=== PATIENT | female | born 1985 | race Caucasian/White ===

== ENCOUNTER 2022-01-07 23:51 | Emergency (ER) | payer BC, SELFPAY ==
[2022-01-07 23:58] VITALS: BP 133/111; PULSE 116; RESP 18; TEMP 36; O2SAT 96
[2022-01-08 00:15] VITALS: BP 133/111; PULSE 116; RESP 18; O2SAT 98
--- NOTE | 2022-01-08 00:39 | CRLHL7_ITS ---
For Patients: As a result of the Century Cures Act, medical imaging exams and procedure reports are released immediately into your electronic medical record. You may view this report before your referring provider. If you have questions, please contact your health care provider. INDICATION: Frequent falls, dizziness TECHNIQUE: CT head without contrast. COMPARISON: None FINDINGS: CSF spaces: Within normal limits for age. Brain parenchyma: The armas-white differentiation is normal. No sign of mass, hemorrhage, or midline shift. Skull base and calvarium: The visualized paranasal sinuses and mastoid air cells demonstrate no acute or significant findings. The visualized orbits are grossly unremarkable. No skull fractures. IMPRESSION: Unremarkable noncontrast head CT. Please note that all CT scans at this facility use dose modulation, iterative reconstruction, and/or weight-based dosing when appropriate to reduce radiation dose to as low as reasonably achievable. Dictated by Harriet Brown MD @ 01/08/2022 1:10:47 AM (Electronically Signed)
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
[2022-01-08 00:50] LABS: Appearance Urine Slightly Cloudy (Clear); Bilirubin Urine Negative (Negative); Blood Urine Trace-intact (Negative); Color Urine Yellow (Yellow); Glucose Urine Negative (Negative); Ketones Urine Negative (Negative); Leukocyte Esterase Urine Negative (Negative); Nitrite Urine Negative (Negative); Protein Urine Negative (Negative); Specific Gravity Urine 1.015 (1.000-1.030); Urobilinogen Urine 0.2 (0.2-1.0)
[2022-01-08] MEDS: 0.9 % SODIUM CHLORIDE 1000 ml 1,000 ML IV (00:55)
[2022-01-08 00:56] LABS: Bacteria Urine Moderate; RBC Urine 0-2 (0-2); Squamous Epithelial Cell Urine Moderate (None-Few); WBC Urine 0-2 (0-5)
[2022-01-08 00:57] LABS: Barbiturate Screen Urine Negative (Negative); Cannabinoid Screen Urine Negative (Negative); Cocaine Screen Urine Negative (Negative); Methadone Screen Urine Negative (Negative); Methamphetamines Screen Urine Negative (Negative); Opiate Screen Urine Negative (Negative); Oxycodone Screen Urine Negative (Negative); Phencyclidine Screen Urine Negative (Negative); Tricyclic Antidepressant Urine Negative (Negative)
[2022-01-08 01:08] LABS: Basophils Absolute Auto 0.04 K/uL (0.00-0.30); Basophils Percent Auto 0.7 % (0.0-3.0); Eosinophils Absolute Auto 0.01 K/uL (0.00-0.50); Eosinophils Percent Auto 0.2 % (0.0-7.0); Hematocrit 42.9 % (33.0-51.0); Hemoglobin* 14.4 gm/dL (12.0-16.0); Immature Granulocytes Abs Auto 0.02 K/uL (0.00-0.30); Lymphocytes Absolute Auto 2.23 K/uL (0.90-2.90); Lymphocytes Percent Auto 38.6 % (20-44); Mean Corpuscular HGB Conc 34 gm/dL (32-36); Mean Corpuscular Hemoglobin 33 pg (26-34); Mean Corpuscular Volume 99 fL (80-100); Monocytes Percent Auto 7.3 % (0.0-11.0); Neutrophils Absolute Auto 3.06 K/uL (1.7-7.0); Neutrophils Percent Auto 52.9 % (42.0-72.0); Platelet Count* 240 K/uL (140-440); RDW Coefficient of Variation % 12.1 % (11.5-15.5); Red Blood Count 4.32 m/uL (4.00-5.20); White Blood Count* 5.78 K/uL (4.50-11.00)
--- NOTE | 2022-01-08 01:09 | ED.NURSE ---
call from lab urine pos amph and benzos, care rn and md notified
[2022-01-08 01:29] LABS: Slide Review Reflex No
[2022-01-08 01:32] LABS: Chloride* 102 mmol/L (96-114)
[2022-01-08 01:33] LABS: Albumin* 4.9 g/dL (3.3-5.0); Potassium* 3.8 mmol/L (3.6-5.1); Sodium* 142 mmol/L (135-149)
[2022-01-08 01:35] LABS: Ethanol* 0.25 % (0.01-0.03); Lipase* 171 U/L (23-300)
[2022-01-08 01:36] LABS: Alkaline Phosphatase* 72 U/L (40-150); Amylase* 76 U/L (18-89); Aspartate Amino Transferase* 155 U/L (12-35); Bilirubin Total* 0.5 mg/dL (0.1-1.5); Blood Urea Nitrogen* 8 mg/dL (5-24); Carbon Dioxide* 29 mmol/L (20-32); Creatinine* 0.6 mg/dL (0.5-1.5); Estimated Glomerular Filt Rate 121 ml/min; Total Protein* 8.6 g/dL (6.0-8.3)
[2022-01-08 01:37] LABS: Alanine Aminotransferase* 51 U/L (4-35); Calcium* 8.8 mg/dL (8.4-10.6); Glucose* 109 mg/dL (60-115)
[2022-01-08 01:44] LABS: PCR FLU A Negative PCR FLU A (Negative); PCR FLU B Negative PCR FLU B (Negative)
[2022-01-08 01:45] LABS: C Reactive Protein* < 0.5 mg/dL (0.5-1.0)
[2022-01-08 01:46] LABS: SARS PCR* Negative SARS-CoV-2 (Negative)
[2022-01-08 01:48] VITALS: PULSE 88; RESP 18; O2SAT 98
[2022-01-08 01:53] LABS: Amphetamine Screen Urine POSITIVE (Negative); Benzodiazepines Screen Urine POSITIVE (Negative)
[2022-01-08 01:55] LABS: INR 0.91 (0.91-1.10); Prothrombin Time 12.7 Seconds
[2022-01-08 02:04] LABS: TSH With Reflex to FT4* 0.901 uIU/mL (0.270-4.200)
[2022-01-08] MEDS: THIAMINE 100 MG TABLET PO (02:07)
[2022-01-08] MEDS: MULTIVITAMIN/MINERALS 1 TABLET 1 TAB PO (02:12)
[2022-01-08] MEDS: FOLIC ACID 1 MG TABLET PO (02:13)
--- NOTE | 2022-01-08 02:38 | ED.NURSE ---
pt isaac called for ride. pt waiting in lobby until he arrives.
[2022-01-08 02:39] VITALS: BP 132/80; PULSE 90; RESP 16; O2SAT 98
== END 2022-01-08 02:40 | disposition home or self-care (01) ==
PROVIDERS: Emergency Provider Family Medicine
DX: R41.82 Altered mental status, unspecified (principal); F10.129 Alcohol abuse with intoxication, unspecified; R74.01 Elevation of levels of liver transaminase levels; R23.3 Spontaneous ecchymoses
CPT/HCPCS: 36415; 70450; 80053; 80306; 81001; 82077; 82150; 83690; 83735; 84443; 84484; 85025; 85610; 86140; 87086; 87502; 87635; 93005; 99284; A9153; A9270; J7030

== ENCOUNTER 2022-09-01 22:58 | Emergency (ER) | payer BC, SELFPAY ==
[2022-09-01 23:06] VITALS: BP 149/116; PULSE 112; RESP 18; TEMP 36.1; O2SAT 97
--- NOTE | 2022-09-01 23:25 | CRLHL7_ITS ---
For Patients: As a result of the Century Cures Act, medical imaging exams and procedure reports are released immediately into your electronic medical record. You may view this report before your referring provider. If you have questions, please contact your health care provider. Indication: Fifth metatarsal base, navicular pain after fall. Technique: Left foot 2 views. Comparison: None. Findings: Bones: No acute fracture or aggressive osseous lesion. Alignment is normal. Joint spaces: Unremarkable. Soft tissues: Unremarkable. Impression: No evidence of an acute bony abnormality. Dictated by Jaime Angel MD @ 09/01/2022 11:58:43 PM (Electronically Signed)
--- NOTE | 2022-09-01 23:25 | CRLHL7_ITS ---
For Patients: As a result of the Century Cures Act, medical imaging exams and procedure reports are released immediately into your electronic medical record. You may view this report before your referring provider. If you have questions, please contact your health care provider. Indication: Marked pain behind left greater trochanter, fall. Technique: One AP pelvis view and two views left hip. Comparison: None. Findings: Bones: No acute fracture or aggressive osseous lesion. Alignment is normal. Joint spaces: Unremarkable. Soft tissues: IUD projects over the pelvis. Impression: No evidence of an acute bony abnormality. Dictated by Jaime Angel MD @ 09/02/2022 12:00:07 AM (Electronically Signed)
--- NOTE | 2022-09-02 00:05 | CRLHL7_ITS ---
For Patients: As a result of the Century Cures Act, medical imaging exams and procedure reports are released immediately into your electronic medical record. You may view this report before your referring provider. If you have questions, please contact your health care provider. INDICATION: Headache, vomiting after fall, alcohol intoxication TECHNIQUE: CT Head without i.v. contrast. Coronal and sagittal reformats were obtained. COMPARISON: None FINDINGS: CSF space: The ventricles are normal for age. Brain: No evidence of mass, acute infarction or hemorrhage is seen. No mass-effect or midline shift is seen. The brain parenchyma is otherwise normal in appearance with preservation of the armas-white matter junction. Calvarium: The visualized paranasal sinuses are well aerated. The mastoid air cells are clear. The visualized orbits are grossly unremarkable. The calvarium is unremarkable in appearance with no fractures identified. IMPRESSION: 1. No evidence of acute infarction, intracranial hemorrhage, or mass-effect seen. Please note that all CT scans at this facility use dose modulation, iterative reconstruction, and/or weight-based dosing when appropriate to reduce radiation dose to as low as reasonably achievable. Dictated by: Edinson Chaudhary MD @ 09/02/2022 00:35:11 (Electronically Signed)
[2022-09-02] MEDS: diphenhydrAMINE 50 MG/ML inj 12.5 MG IVP (00:24)
[2022-09-02] MEDS: 0.9 % SODIUM CHLORIDE 1000 ml 1,000 ML IV (00:24)
[2022-09-02] MEDS: KETOROLAC 30 MG/ML inj IVP (00:26)
[2022-09-02] MEDS: METOCLOPRAMIDE HCL 10 MG in 0.9 % SODIUM CHLORIDE 100 ml 100 ML 306 MG IVPB (00:27)
--- NOTE | 2022-09-02 00:48 | ED.GENADULT ---
HPI - General Adult General Chief complaint: Fall/Minor Trauma Stated complaint: Fall Time Seen by Provider: 09/01/22 23:13 History of Present Illness HPI narrative: Is getting inspection of I believe their rental. Going down to the basement the railing gave way and she fell. Does have a history of a number of surgeries I believe on the right ankle and is worried that may have injured her left ankle similarly. Also has some left hip area pain. Left inner knee pain. She also notes bruise on left thigh. Does have a history of frequent falls might be related to alcohol but is also noted to be related to right ankle injury/surgery/loss of sensation/paresthesia however is denies that that is related to fall at this time specifically this fall again with the railing let go. She did hit her head and is having some left-sided neck pain. Further conversation later reveals that she has been vomiting since the fall. Admitting that it was not the best treatment she did have some alcohol this evening. Would not be in withdrawal therefore. Anything comes up that she tries to drink noting straight water in particular. Ambulated into the emergency department. Movement of the left hip causes pain. Has tried a couple of doses of 8 mg ODT Zofran without relief of vomiting/nausea. Notes that has heartburn/GERD and has missed some omeprazole dosing. Related Data Home Medications Medication Instructions Recorded Confirmed Inderal 01/08/22 clonazepam 2 mg tablet 2 mg PO BID 01/08/22 01/08/22 dextroamphetamine-amphetamine ER 20 mg PO DAILY 01/08/22 01/08/22 20 mg 24hr capsule,extend release (Adderall XR) omeprazole 40 mg capsule,delayed 40 mg PO DAILY 01/08/22 01/08/22 release temazepam 7.5 mg capsule (Restoril) mg 01/08/22 trazodone 100 mg tablet 100 mg PO DAILY 01/08/22 01/08/22 vortioxetine 20 mg tablet 20 mg PO DAILY 01/08/22 01/08/22 zolpidem 10 mg tablet (Ambien) PO 01/08/22 Allergies Allergy/AdvReac Type Severity Reaction Status Date / Time Sulfa (Sulfonamide Allergy Severe Verified 01/08/22 00:12 Antibiotics) Review of Systems Status of ROS: Reports: 6 or more systems reviewed and unremarkable except as noted in History and below PFSH PFSH Social History Smoking Status: Current every day smoker How often do you have a drink containing alcohol: 2-4 times a month How often do you have six or more drinks on one occasion: Less than monthly AUDIT-C Alcohol total score: 3 Non-prescribed substance use: denies use Exam Narrative: Exam Narrative: Hard of hearing but also appears to be intoxicated. Subtle slurring of speech at times. CN 2 - 12 intact. Uncomfortable to palpation of the left upper parietal. Left low paracervical musculature soreness she said is probably muscle. No midline back tenderness. No SI joint tenderness. She is tender to palpation posterior to the left greater trochanter. There is a fresh bruise mild swelling about the size of a quarter quite tender in the mid left anterolateral thigh. She is tender the medial upper tibia near the knee. No effusion. No evidence of bruise there. There is yellow healing finishing machine tender bruise at the upper anterolateral left leg. Evaluation of the ankle she reports medial malleolar pain although that is not reproducible on exam. Otherwise it did appear to be reproducible pain to the navicular area and the base of the 5th metatarsal. Is propped up with pillows under her left knee. Rotation of the hip flexion-extension have does not exactly reproduce her pain. extremities are well perfused without edema. lungs are clear. heart with regular elevated - tachycardic rate. abdomen with diffuse mild tenderness, a little moreso in the upper abdomen. Const: Vital Signs, click to edit/add: Vital Signs - 24 hr 09/01/22 23:06 Temperature 97.0 F L Pulse Rate [Left P ulse Oximeter] 112 H Respiratory Rate 18 Blood Pressure [Ri ght Upper Arm] 149/116 H Pulse Oximetry 97 Oxygen Delivery Me thod Room Air Documenting provider has reviewed patient's vital signs: yes Course Vital Signs Vital signs: Initial Vital Signs Temperature 97.0 F L 09/01/22 23:06 Temperature Source Temporal Artery Scan 09/01/22 23:06 Pulse Rate 112 H 09/01/22 23:06 Pulse Rhythm Regular 09/01/22 23:06 Respiratory Rate 18 09/01/22 23:06 Blood Pressure 149/116 H 09/01/22 23:06 Blood Pressure Mean 127 09/01/22 23:06 Blood Pressure Position Semi-Fowlers 09/01/22 23:06 Pulse Oximetry 97 09/01/22 23:06 Oxygen Delivery Method Room Air 09/01/22 23:06 Vital Signs Temperature 97.0 F L 09/01/22 23:06 Pulse Rate 112 H 09/01/22 23:06 Respiratory Rate 18 09/01/22 23:06 Blood Pressure 149/116 H 09/01/22 23:06 Pulse Oximetry 97 09/01/22 23:06 Oxygen Delivery Method Room Air 09/01/22 23:06 Temperature 97.0 F L 09/01/22 23:06 Pulse Rate 112 H 09/01/22 23:06 Respiratory Rate 18 09/01/22 23:06 Blood Pressure 149/116 H 09/01/22 23:06 Pulse Oximetry 97 09/01/22 23:06 Oxygen Delivery Method Room Air 09/01/22 23:06 Medical Decision Making MDM Narrative Medical decision making narrative: Review of records shows a history of tachycardia Later did appear she would like some treatment for headache and other pain. With complaints of vomiting in the setting of intense headache a did also opt to scan her head. Reviewed by me I did not appreciate any acute bleed or abnormality. Radiology in agreement. Images of foot, partial ankle and pelvis/left hip were negative for acute bony abnormality as well by my read. Treatment for headache did include ketorolac normal saline diphenhydramine and metoclopramide. Was able to rest and seemed more comfortable during time in the emergency department. suspect alcohol a source of a number of resulting medical-ortho challenges. see patient discharge plan Discharge Plan Discharge Clinical Impression: Alcohol intoxication, Closed head injury, Headache, Multiple contusions, Fall Patient Disposition: Home w/ Parent or Adult Condition: Improved Additional Instructions: Focus on hydration with slow advance of diet over the next 24-36 hours. Start with diluted juices, soup broths, rice, toast, crackers. Advancing to thicker soups and smoothies. I like those ice bags with the screw top lids. Fill with ice and then water in order to ice the areas that hurt 2-3 times daily over the next few days. See handout for some stretches for the upper back/neck that might be helpful. This does not represent your diagnosis but the stretches are relevant. Can take between 600 and 800mg of ibuprofen per dose. Probably with a little food. Can also take up to 1000 mg of acetaminophen. These can be combined. Alternative to the ibuprofen might be up to 500 mg of naproxen 2 times daily. Consider restarting your omeprazole and taking at least over the next 2 weeks. Prescriptions: No Action dextroamphetamine-amphetamine [Adderall XR] 20 mg capsule,extended release 24hr 20 mg PO DAILY vortioxetine 20 mg tablet 20 mg PO DAILY clonazepam 2 mg tablet 2 mg PO BID zolpidem [Ambien] 10 mg tablet PO temazepam [Restoril] 7.5 mg capsule trazodone 100 mg tablet 100 mg PO DAILY Inderal omeprazole 40 mg capsule,delayed release(DR/EC) 40 mg PO DAILY Follow Up/Referrals: Provider,Not a Local [Primary Care Provider] - Stand Alone Forms: Peer5 Info Instructions
== END 2022-09-02 01:24 | disposition home or self-care (01) ==
PROVIDERS: Emergency Provider Family Medicine
DX: S70.12XA Contusion of left thigh, initial encounter (principal); S90.02XA Contusion of left ankle, initial encounter; W10.9XXA Fall (on) (from) unspecified stairs and steps, initial encounter; F10.129 Alcohol abuse with intoxication, unspecified
CPT/HCPCS: 70450; 73502; 73620; 96365; 96375; 99284; J1200; J1885; J2765; J7030